=== PATIENT | male | born 1990 | race Caucasian/White ===

== ENCOUNTER 2024-04-19 09:32 | Emergency (ER) | payer OTHER ==
[2024-04-19 09:54] VITALS: BP 103/60; PULSE 70; RESP 15; TEMP 98; BMI 23.6
[2024-04-19] MEDS ORDERED: DIPHTH,PERTUSS(ACELL),TET 0.5 ML DISP.SYRIN IM ONE (09:55)
[2024-04-19] MEDS: DIPHTH,PERTUSS(ACELL),TET 0.5 ML DISP.SYRIN IM ONE (09:58)
== END 2024-04-19 12:31 | disposition home or self-care (01) ==
LOC: FER 09:32
PROC: 3E0234Z Introduction of Serum, Toxoid and Vaccine into Muscle, Percutaneous Approach (ICD-10-PCS; principal; 2024-04-19)
DX: S00.12XA Contusion of left eyelid and periocular area, initial encounter (principal); W01.198A Fall on same level from slipping, tripping and stumbling with subsequent striking against other object, initial encounter; Z23 Encounter for immunization
CPT/HCPCS: 70450-TC; 70486-TC; 90715; 99284-25

== ENCOUNTER 2024-11-12 16:40 | Emergency (ER) | payer OTHER ==
[2024-11-12 16:45] VITALS: BP 108/67; PULSE 71; RESP 18; TEMP 98; BMI 24.5
[2024-11-12 17:51] LABS: ABSOLUTE IMMATURE GRANULOCYTES 0.01 x10^3/uL (0.0-0.031); BASOPHILS # 0.05 x10^3/uL (0.01-0.08); EOSINOPHIL % 2.4 % (0.8-7.0); EOSINOPHILS # 0.13 x10^3/uL (0.04-0.54); HEMATOCRIT 38.8 % (40.1-51.0); HEMOGLOBIN 12.6 g/dL (13.7-17.5); MCHC 32.5 g/dl (32.3-36.5); MEAN CELL VOLUME 81.3 fl (79.0-92.2); MEAN PLT VOLUME 9.9 fl (9.4-12.4); MONOCYTE # 0.46 x10^3/uL (0.30-0.82); MONOCYTE % 8.5 % (5.3-12.2); PLATELET COUNT 231 x10^3/uL (163-337); RDW 13.1 % (12.0-15.6)
[2024-11-12 17:59] LABS: INR 1.06 (0.83-1.09); PROTHROMBIN TIME (PATIENT) 11.7 SEC (9.7-13.0)
[2024-11-12 18:02] LABS: ACTIVATED PTT 31.9 SECONDS (25.2-36.5)
[2024-11-12 18:13] LABS: CALCIUM 9.7 mg/dL (8.5-10.1)
[2024-11-12 18:14] LABS: ALBUMIN 4.3 g/dl (3.4-5.0)
[2024-11-12 18:18] LABS: MAGNESIUM 2.5 mg/dL (1.8-2.4)
[2024-11-12 18:19] LABS: BILIRUBIN,TOTAL 0.3 mg/dL (0.2-1); TOT PROT 8.2 g/dl (6.4-8.2)
[2024-11-12] MEDS: ACETAMINOPHEN 500 MG TABLET (FP) PO ONE (18:29)
[2024-11-12 19:11] LABS: HCV DIAGNOSTIC IN-HOUSE W/RFLX NON-REACTIVE (NONREACTIVE); HIV INTERPRETATION NEGATIVE (NEGATIVE)
== END 2024-11-12 18:41 | disposition home or self-care (01) ==
LOC: JER 16:40
DX: R42 Dizziness and giddiness (principal); R11.0 Nausea
CPT/HCPCS: 0241U-QW; 36415; 71045-TC-FY; 80053; 80178; 82550; 82553; 82962; 83735; 84484; 85025; 85610; 85730; 86803; 87389; 93005; 93010; 99285-25